=== PATIENT | male | born 1945 | race Caucasian/White ===

== ENCOUNTER 2020-02-01 10:51 | Day surgery (SDC) | payer MEDICARE, BC ==
[~2020-02-01] VITALS: Ht 167.6 cm; Wt 77.1 kg
[2020-02-01] VITALS (10 sets, daily range): BP systolic 123–167; BP diastolic 68–90
[~2020-02-01 10:51] MED LIST: ASPIRIN81 MG ORAL; GLUCOPHAGE500 MG ORAL; LIPITOR20 MG ORAL; NORVASC10 MG ORAL; PAXIL10 MG ORAL; PROSCAR5 MG ORAL; UROCIT-K5 MEQ PO; UROXATRAL10 MG ORAL; ceFAZolin sod 1 GM in NS 55 ML IVPB ONE
[2020-02-01] MEDS ORDERED: LISINOPRIL5 MG ORAL (11:41)
[2020-02-01] MEDS ORDERED: SOTALOL80 M1 ORAL (11:42)
--- NOTE | 2020-02-01 13:39 | Anethesia Preoperative Eval ---
Anesthesia Pre-op PMH/ROS General Date of Evaluation: Feb 01, 2020 Time of Evaluation: 15:40 Anesthesiologist: Ruth Ann ASA Score: ASA 3 Mallampati Score Class I : Soft palate, uvula, fauces, pillars visible Class II: Soft palate, uvula, fauces visible Class III: Soft palate, base of uvula visible Class IV: Only hard plate visible Mallampati Classification: Class II Surgeon: Kwan Diagnosis: L Renal Stone Surgical Procedure: ESWL, L Ureteral Stent Placement Family History: no anesthesia problems Allergies: Uncoded Allergies: NUTS (Allergy, Severe, SWOLLEN FACE, TONGUE, 01/31/20) Medications: see eMAR Patient NPO?: Yes Past Medical History Cardiovascular: Reports: HTN, CAD - Stent, other - HL Gastrointestinal/Genitourinary: Reports: other - GI Ulcer, Bulimia Endocrine: Reports: DM Hematology/Immune: Reports: anemia Anesthesia Pre-op Phys. Exam Physician Exam Last Vital Signs Date Time Temp Pulse Resp B/P (MAP) Pulse Ox O2 Delivery O2 Flow Rate FiO2 02/01/20 11:42 Room Air 02/01/20 11:38 97.0 72 18 123/70 97 Constitutional: NAD Neurologic: CN 2-12 intact Cardiovascular: RRR Respiratory: CTA Gastrointestinal: S/NT/ND Airway Exam Mallampati Score: Class II MO: full ROM: limited Teeth: missing, intact Anesthesia Pre-op A/P Labs Chemistry Test 02/01/20 11:54 POC Whole Blood Glucose 158 MG/DL (74-106) H Risk Assessment & Plan Assessment: ASA 3 Plan: GA, SED Status Change Before Surgery: No Pre-Antibiotics Dru Gram Ancef IV Given Within 1 Hr of Incision: Yes Time Given: 15:51 Thee Vallecillo MD Feb 01, 2020 13:39
--- NOTE | 2020-02-01 13:43 | Immediate Post-Op Evaluation ---
Immediate Post-Op Evalulation Immediate Post-Op Evalulation Procedure: ESWL, L Ureteral Stent Placement Date of Evaluation: Feb 01, 2020 Time of Evaluation: 17:34 IV Fluids: 1000 LR Blood Products: 0 Estimated Blood Loss: 25 Urinary Output: 0 Blood Pressure Systolic: 167 Blood Pressure Diastolic: 90 Pulse Rate: 75 Respiratory Rate: 16 O2 Sat by Pulse Oximetry: 97 Temperature (Fahrenheit): 99.8 Pain Score (1-10): 1 Nausea: No Vomiting: No Complications 0 Patient Status: awake, reacts, patent, none Hydration Status: adequate Dru Gram Ancef IV Given Within 1 Hr of Incision: Yes Time Given: 15:51 Thee Vallecillo MD Feb 01, 2020 13:43
[2020-02-01] MEDS ORDERED: Atropine Sulfate 0.4mg/ml inj IVP PRN (13:45)
[2020-02-01] MEDS ORDERED: Labetalol 5mg/ml 20ml vial IV PRN (13:45)
[2020-02-01] MEDS ORDERED: Meperidine 25mg/0.5ml Inj (FOR RIGORS ONLY) IV PRN (13:45)
[2020-02-01] MEDS ORDERED: Midazolam 2mg/2ml Inj IVP PRN (13:45)
[2020-02-01] MEDS ORDERED: LR 1000ml 1,000 ML IVLG SCH (13:45)
[2020-02-01] MEDS ORDERED: Metoclopramide 10mg/2ml Inj IVP PRN (13:45)
[2020-02-01] MEDS ORDERED: fentaNYL 100 mcg/2 mL IV PRN (13:45)
[2020-02-01] MEDS ORDERED: oxyCODONE HCL/Acetaminophen 5/325mg ORAL PRN (13:45)
[2020-02-01] MEDS ORDERED: LORazepam Inj 2mg/ml 1ml IV PRN (13:45)
[2020-02-01] MEDS ORDERED: Ketorolac 30mg Inj IV PRN ×2 (13:45)
[2020-02-01] MEDS ORDERED: HYDROcodone/Acetamin 7.5/325 tab ORAL PRN (13:45)
[2020-02-01] MEDS ORDERED: DiphenhydrAMINE 50mg/ml Inj IVP PRN (13:45)
[2020-02-01] MEDS ORDERED: Hydromorphone 0.5mg/0.5ml inj IVP PRN (13:45)
[2020-02-01] MEDS ORDERED: HYDROcodone/Acetamin 5/325 tab ORAL PRN ×2 (13:45→16:45)
[2020-02-01] MEDS ORDERED: Lidocaine 1% MPF 10mg/ml 5ml ONE (15:40)
[2020-02-01] MEDS ORDERED: fentaNYL 100 mcg/2 mL IV ONE (15:44)
[2020-02-01] MEDS ORDERED: Midazolam 2mg/2ml Inj ONE (15:44)
[2020-02-01] MEDS ORDERED: NS Irrig 1000ml ONE (16:00)
[2020-02-01] MEDS ORDERED: Neostigmine 1mg/ml 10ml Inj ONE (16:00)
[2020-02-01] MEDS ORDERED: Glycopyrrolate 0.2mg/ml 1ml Vial ONE ×2 (16:00→17:03)
[2020-02-01] MEDS ORDERED: LR 1000ml ONE (16:00)
[2020-02-01] MEDS ORDERED: Sterile Water Irrig 1000ml IRRIG ONE (16:00)
[2020-02-01] MEDS ORDERED: Iothalamate Meglumine 60% 30ML INJ ONE (16:04)
[2020-02-01] MEDS ORDERED: NS Irrig 4000ml IRRIG ONE (16:05)
--- NOTE | 2020-02-01 16:37 | Brief Operative Note ---
Immediate Post Operative Note Operative Note Pre-op Diagnosis: left kidney and ureteral stones Procedure: rirs eswl left Post-op Diagnosis: same Post-op Diagnosis: same as pre-op Surgeon: Leandro Bowens Anesthesia: general Specimen: none Complications: none Condition: stable Fluids: 500 Estimated Blood Loss: minimal Implant(s) used?: No Jaun Bowens MD Feb 01, 2020 16:37
--- NOTE | 2020-02-01 16:39 | Pre-Procedure Note/Attestation ---
Pre-Procedure Note/Attestation Complete Prior to Procedure Planned Procedure: left Procedure Narrative: RIRS ESWL LEFT Indications for Procedure Pre-Operative Diagnosis: left kidney and ureteral stones Attestation I attest that I discussed the nature of the procedure; its benefits; risks and complications; and alternatives (and the risks and benefits of such alternatives), prior to the procedure, with the patient (or the patient's legal client relations representative). I attest that, if there was a reasonable possibility of needing a blood transfusion, the patient (or the patient's legal client relations representative) was given the [facility] standardized written summary, pursuant to the Ej Heber-Over[place] Blood Safety Act ([place] Health and Safety Code # 1645, as amended). I attest that I re-evaluated the patient just prior to the surgery and that there has been no change in the patient's H&P, except as documented below: Jaun Bowens MD Feb 01, 2020 16:39
[2020-02-01] MEDS ORDERED: Tylenol #3 tab (300mg/30mg) ORAL PRN (16:45)
[2020-02-01] MEDS ORDERED: HYDROmorphone 1mg/ml Carpuject SUBQ PRN (16:45)
[2020-02-01] MEDS ORDERED: D5 1/2NS 1,000 ML IV SCH (20:00)
--- NOTE | 2020-02-07 02:44 | Operative Note - Dictated ---
DATE OF OPERATION: 02/01/2020 PREOPERATIVE DIAGNOSES: Left ureteral stone, multiple left renal stones. POSTOPERATIVE DIAGNOSIS: Left ureteral stone, multiple left renal stones. OPERATION: Cystoscopy, retrograde pyelogram, semi-rigid ureteroscopy with stone manipulation of the left ureteral stone, flexible ureteroscopy with combined extracorporeal shockwave lithotripsy of four calyceal stones in the left kidney, double-J stent placement. TASSEL CLIPPER: Jaun Bowens MD ANESTHESIA: General. FINDINGS: As above, impacted stones. INDICATIONS FOR SURGERY: Patient developed severe left renal colic and a CT urogram at [facility] showed 5 mm stone in the left ureter as well as multiple stones in the left kidney. He was treated conservatively for approximately 7 days with Flomax and Eleele. However, repeat ultrasound showed continuous hydronephrosis and patient did not get resolution of the pain or did not see . Treatment options were explained to him and his and he agreed to proceed with endoscopic approach. All potential complications were explained. He signed the consent. DESCRIPTION OF SURGERY: He was brought to the operating room, placed in lithotomy position, prepped and draped in standard fashion. Under general anesthesia, cystoscope was introduced into the bladder. Bladder was normal. Guidewire was placed into the left ureter and semi-rigid ureteroscope was introduced. Stone was found in the lower ureter and washed out. After that, flexible ureteroscopy was performed. Ureteroscope was brought into the collecting system and left kidney stones were found in the lower mid and upper calyx of the kidney. Using extracorporeal shock wave lithotripsy, stones were fragmented into small pieces. Double-J stent 26-Malagasy was placed and left indwelling, including Jo catheter. The patient tolerated the procedure well. No evidence of complications. Jaun Bowens M.D. DR: DEO JOB#: [id number] CC:
== END 2020-02-01 18:35 | disposition home or self-care (01) ==
LOC: SUR 10:51
DX: N20.2 Calculus of kidney with calculus of ureter (principal); I11.9 Hypertensive heart disease without heart failure; I25.10 Atherosclerotic heart disease of native coronary artery without angina pectoris; Z95.5 Presence of coronary angioplasty implant and graft; E11.9 Type 2 diabetes mellitus without complications; Z91.018 Allergy to other foods
CPT/HCPCS: 52356; 82962; 94003; J0690; J1885; J1940; J2250; J2405; J2704; J2710; J3010; J7120; Q9961; U0002; 94150